=== PATIENT | female | born 1985 | race Two or more races ===

== ENCOUNTER 2024-04-12 14:56 | Outpatient (CLI) | payer OTHER | END 2024-04-12 14:59 | disposition home or self-care (01) | LOC: SONOGRAMA 14:56 | PROVIDERS: ATTEND Pathology Anatomic Pathology & Clinical Pathology | DX: E04.2 Nontoxic multinodular goiter (principal); C73 Malignant neoplasm of thyroid gland ==

== ENCOUNTER 2024-06-12 10:36 | Outpatient (CLI) | payer OTHER | END 2024-06-12 10:43 | disposition home or self-care (01) | LOC: SONOGRAMA 10:36 | PROVIDERS: ATTEND Otolaryngology | DX: C73 Malignant neoplasm of thyroid gland (principal) ==

== ENCOUNTER 2024-06-15 08:45 | Inpatient (IN) | payer OTHER ==
[~2024-06-15] VITALS: Ht 162.6 cm; Wt 79.8 kg
[2024-06-15] MEDS ORDERED: ZESTRIL40 M1 PO (10:48)
[2024-06-15] MEDS ORDERED: TENORMIN100 M1 PO (10:48)
[2024-06-15] MEDS ORDERED: CRYSELLE-28 TA1 EACH PO (10:49)
[2024-06-15] MEDS ORDERED: LIPITOR20 MG (10:49)
[2024-06-15] MEDS ORDERED: LIPOFEN150 MG (10:49)
[2024-06-15] MEDS ORDERED: VITAMIN B-121000 MC4 PO (10:50)
[2024-06-15] MEDS ORDERED: EMGALITY S120 MG/1 M (10:51)
[2024-06-15] MEDS ORDERED: NURTEC ODT75 MG PO (10:51)
[2024-06-15 10:52] VITALS: BP 138/92
[2024-06-15] MEDS ORDERED: JARDIANCE25 MG PO (10:52)
[2024-06-15 12:27] LABS: URINE APPEARANCE Cloudy; URINE BILIRRUBIN Negative (NEGATIVE); URINE BLOOD Moderate; URINE COLOR Yellow; URINE KETONE Negative (NEGATIVE); URINE LEUKOCYTE Negative; URINE NITRATE Negative; URINE PROTEIN Trace (NEGATIVE); URINE UROBILINOGEN 0.2 E.U./dl
[2024-06-15 12:28] LABS: URINE EPITHELIAL CELLS 5.2 uL (0.0-38.8); URINE RBC 3.8 uL (0.0-20.8); URINE WBC 195.2 uL (0.0-23.2)
[2024-06-15 12:45] LABS: HEMATOCRIT 37.3 % (36.0-45.00); HEMOGLOBIN 12.5 g/dL (12.0-15.00); MEAN CELL VOLUME 83.6 fL (80.00-100.00); MEAN CORPUSCULAR HEMOGLOBIN 28.1 pg (27.00-32.0); MEAN CORPUSCULAR HGB CONC 33.6 g/dl (32.0-36.0); PLATELET COUNT 516 K/uL (150-450); RED BLOOD COUNT 4.47 M/uL (4.00-6.00); RED CELL DISTRIBUTION WIDTH 14.8 % (11.5-14.5)
[2024-06-15 12:52] LABS: URINE BACTERIA > 9821.5 uL (0.0-1933); URINE CAST 0.44 uL (0.0-1.40); URINE GLUCOSE >=1000 MG/DL (NEGATIVE)
[2024-06-15 12:53] LABS: URINE CRYSTALS MODERATE /HPF
[2024-06-15 13:11] LABS: INR 0.99; PARTIAL THROMBOPLASTIN TIME 27.6 SECONDS (22.0-34.0); PROTHROMBIN TIME 10.8 SECONDS (9.0-11.5)
[2024-06-15 13:19] LABS: BILIRUBIN TOTAL 0.43 mg/dL (0.3-1.2); CALCIUM 9.9 mg/dL (8.5-10.1); CREATININE SERUM 1.04 mg/dL (0.55-1.02); GFR 59.63; GLOBULINA 3.9 G/DL (2.4-3.5); POTASSIUM 4.66 mEq/L (3.5-5.1); TOTAL PROTEIN 7.9 gm/dL (6.4-8.2)
[2024-06-22] MEDS ORDERED: ENALAPRILAT DIHYDRATE 1.25 MG/ML VIAL IV PRN (12:30)
[2024-06-22] MEDS ORDERED: DEXTROSE 50 % IN WATER 0.5 G/ML DISP.SYRIN IV PRN (12:30)
[2024-06-22] MEDS ORDERED: ONDANSETRON HCL 2 MG/ML VIAL IV PRN (12:30)
[2024-06-22] MEDS ORDERED: INSULIN LISPRO 1,000 UNIT/10 ML UNITS SUBCUTANEO PRN (12:30)
[2024-06-22] MEDS ORDERED: CLINDAMYCIN PHOSPHATE 150 MG/ML (600mg) ONE (12:41)
[2024-06-22] MEDS ORDERED: DEXAMETHASONE SODIUM PHOSPHATE 4 MG/ML VIAL ONE (12:43)
[2024-06-22] MEDS ORDERED: MORPHINE SULFATE 4 MG/ML VIAL IV ONE (16:15)
[2024-06-22] MEDS ORDERED: LABETALOL HCL 100 MG TABLET PO SCH (17:00)
[2024-06-22] MEDS ORDERED: ACETAMINOPHEN 500 MG GEL..CAP PO SCH (17:00)
[2024-06-22] MEDS ORDERED: CYCLOBENZAPRINE HCL 5 MG TABLET PO SCH (17:00)
[2024-06-22 19:57] VITALS: BP 126/86; O2SAT 97
[2024-06-22] MEDS ORDERED: Calcium Carbonate 1 TAB TABLET PO SCH (21:00)
[2024-06-22] MEDS ORDERED: PANTOPRAZOLE SODIUM 40 MG/VIAL VIAL IV PUSH SCH (21:00)
[2024-06-23 00:30] VITALS: BP 116/64; O2SAT 100
[2024-06-23] MEDS ORDERED: LEVOTHYROXINE SODIUM 125 MCG TABLET PO SCH (06:00)
[2024-06-23] MEDS ORDERED: ATENOLOL 100 MG TABLET PO SCH (09:00)
[2024-06-23] MEDS ORDERED: ATORVASTATIN CALCIUM 20 MG TABLET PO SCH (09:00)
[2024-06-23] MEDS ORDERED: LISINOPRIL 40 MG TABLET PO SCH (09:00)
[2024-06-23 12:05] VITALS: BP 100/63; O2SAT 97
[2024-06-23] MEDS ORDERED: CALCITRIOL 0.5 MCG CAPSULE PO NR (13:00)
[2024-06-23] MEDS ORDERED: CALCITRIOL 0.5 MCG CAPSULE PO SCH (17:00)
== END 2024-06-23 14:15 | disposition home or self-care (01) | DRG 627 ==
LOC: SURH 06-22 08:45 → O/R 06-22 09:00 → SURH 06-22 09:15
PROVIDERS: ADMIT Surgery; ATTEND Surgery
PROC: 0GTH0ZZ Resection of Right Thyroid Gland Lobe, Open Approach (ICD-10-PCS; principal; 2024-06-22 09:15)
DX: C73 Malignant neoplasm of thyroid gland (principal)